=== PATIENT | male | born 1960 | race Caucasian/White ===

== ENCOUNTER 2017-07-14 11:28 | Emergency (ER) | payer OTHER, BC ==
[~2017-07-14] VITALS: Wt 135.2 kg
[2017-07-14] MEDS ORDERED: NAPROSYN500 MG PO (11:41)
== END 2017-07-14 14:11 | disposition home or self-care (01) ==
LOC: ED 11:28
DX: S43.402A Unspecified sprain of left shoulder joint, initial encounter (principal); R03.0 Elevated blood-pressure reading, without diagnosis of hypertension; W01.0XXA Fall on same level from slipping, tripping and stumbling without subsequent striking against object, initial encounter; Y93.89 Activity, other specified; Y92.69 Other specified industrial and construction area as the place of occurrence of the external cause; Y99.8 Other external cause status